=== PATIENT | female | born 2000 | race Caucasian/White ===

== ENCOUNTER 2024-10-05 20:57 | Emergency (ER) | payer MEDICAID ==
[~2024-10-05] VITALS: Ht 167.6 cm; Wt 86.6 kg
--- NOTE | 2024-10-05 21:31 | Physician Documentation ---
History of Present Illness ~ Chief Complaint: Fever Stated Complaint: FEVER Time Seen by MD: 01:55 HPI 24-year-old female presents to the ED with a complaint of a fever for the last three days. States that her fever has been over 103 F. denies any other symptoms other than minor headache. Denies any neck pain. States she has recurrent UTIs and currently explains that she has a burning urination. Additional note by Chidi Mills DO: I took over the care of this patient from previous physician. I reviewed any previous notes available, obtain my own history, review of systems and physical examination was performed by myself. This is a pleasant 24-year-old female with known history of recurrent UTIs, comes in for evaluation of two days of fever with a T-max of 104.3. She reports urinary frequency and dysuria. Reports minor headache when fever present. She feels that this represents a urinary tract infection. The particular palliating or aggravating factors. The nursing note states that the patient was confused in triage, however she states that she did not feel confused and she just asked the boyfriend to verify her cell phone number as she does not often refers to it. No altered mental status. No current headache. No neck pain. Denies any other symptoms. Denies any concern for tobacco, alcohol or illicit substances use Day of Onset: Oct 05, 2024 Medication Reconciliation Allergies: Coded Allergies: ciprofloxacin (Verified Allergy, Unknown, RASH, 10/05/24) Review of Systems ROS 10 point review of systems was performed and unless noted above in HPI is negative for acute process/complaint. Physical Exam Vital Signs: Temperature: 103.1, Source: Oral, Heart Rate: 138, Respiratory Rate: 16, BP: 132/82, Pulse Oximetry: 97, Weight: 86.600 Oxygen Flow Rate: 0 Physical Exam Physical examination: GENERAL: Awake, alert, oriented, GCS 15, no apparent distress, non-toxic appearing, answers questions, follows commands appropriately. HEENT: Atraumatic, normocephalic, pupils equal, extraocular muscles intact Active gross movements, sclerae anicteric, mucus membranes moist, no stridor. NECK: Midline, no JVD CARDIOVASCULAR: Good skin perfusion without evidence of pallor, mottling. PULMONARY: Nonlabored, symmetric chest rise, no audible wheezing, no accessory muscle use, no respiratory distress, speaking in full sentences. GASTROINTESTINAL: Not distended. NEUROLOGIC: Lucid with normal mental status. Normal facial symmetry. Moves all extremities symmetrically and with purpose. No truncal ataxia. Speech is fluid without evidence of dysarthria or aphasia, no focal deficits appreciated. EXTREMITIES: Acute deformities Skin: warm, dry PSYCHIATRIC: Normal affect, normal insight, normal concentration. Focused exam: [] Progress Results/Orders Results/Orders Orders - CHIDI MILLS DO Monitor (10/05/24 21:12) Oxygen (10/05/24 21:12) Saline Lock (10/05/24 21:12) Straight Cath For Urine Sample (10/05/24 21:12) Cult Urine + [place] [address] (10/06/24 02:21) Completed Orders - CHIDI MILLS DO Cbc/Diff (10/05/24 21:12) Procalcitonin (10/05/24 21:12) BMP (10/05/24 21:12) Ua W/Microscopic, Cult If Ind (10/06/24 01:00) Medications Received in ER Medications (Trade) Dose Ordered Sig/Nicolas Route PRN Reason Start Time Stop Time Status Last Admin Dose Admin (Motrin tablet) 800 mg ONCE ONCE PO 10/05/24 22:05 10/05/24 22:06 DC 10/05/24 22:47 800 MG Vital Signs 10/05/24 10/06/24 10/06/24 21:07 02:01 02:03 Temp 103.1 97.7 Pulse 138 80 Resp 16 16 B/P (MAP) 132/82 124/66 (85) Pulse Ox 97 99 O2 Flow Rate 0 Laboratory Tests Test 10/05/24 21:39 10/06/24 01:00 White Blood Count 12.6 H Red Blood Count 4.31 Hemoglobin 12.8 Hematocrit 38.4 Mean Corpuscular Volume 89.1 Mean Corpuscular Hemoglobin 29.7 Mean Corpuscular Hemoglobin Concent 33.3 Red Cell Distribution Width 12.5 Platelet Count 219 Mean Platelet Volume 7.1 L Neutrophils (%) (Auto) 85.2 H Lymphocytes (%) (Auto) 4.8 L Monocytes (%) (Auto) 9.2 Eosinophils (%) (Auto) 0.7 Basophils (%) (Auto) 0.1 Neutrophils # (Auto) 10.7 H Lymphocytes # (Auto) 0.6 L Monocytes # (Auto) 1.1 H Eosinophils # (Auto) 0.1 Basophils # (Auto) 0.0 CBC Comment Sodium Level 136 Potassium Level 3.3 L Chloride Level 104 Carbon Dioxide Level 25.2 Anion Gap 7 L Blood Urea Nitrogen 9 Creatinine 0.94 H Estimated GFR/1.73 m2 73 BUN/Creatinine Ratio 9.6 L Glucose Level 143 H Calcium Level 8.6 Albumin 3.3 L Procalcitonin 0.29 Chemistry Comments Urine Specimen Description Cln catch midstream Urine Color Straw Urine Clarity Cloudy Urine pH 6.0 Urine Specific [place] 1.020 Urine Protein 100 H Urine Glucose (UA) Negative Urine Ketones Trace H Urine Occult Blood Small Urine Nitrite Positive H Urine Bilirubin Negative Urine Urobilinogen 0.2 Urine Leukocyte Esterase Small H Urine RBC 3-10 Urine WBC 50-100 H Urine WBC Clumps Few Urine Squamous Epithelial Cells Few Urine Bacteria 2+ Urine Mucus Moderate Urine Culture Indicated Indicated Volume Urine Centrifuged 10 ml Urine Comment Medical Decision Making Findings Facility Status: ED H[facility], [facility] process The plan was discussed with the patient, who demonstrates clear understanding of the plan and is in agreement with the plan unless otherwise noted in the chart. All questions have been answered, all concerns were addressed unless otherwise documented. I was available throughout their ED stay for frequent reassessment and questions. Differential Diagnoses (considered and possible or likely): [Urinary tract infection, COVID, influenza, RSV, upper respiratory infection in the top of the viruses, bacterial pneumonia less likely, sepsis has been considerably as well with a without organ failure] ??Differential Diagnoses (considered and unlikely, not requiring evaluation currently): [See above] MDM Data Please see [facility] for the following: Independent Historians and external Records Review. Historian: [Patient] Independent Historians: ?[Boyfriend] Medication Management: [Reviewed medication list] Social History and determinants: [Reviewed] Please see the body of the note for the following: Any independent interpretations of ECG, imaging studies. All vitals signs/haemodynamics, ordered tests were independently reviewed and interpreted by myself. Nursing triage complaint and vitals reviewed, additional nursing notes were reviewed as available and I agree unless otherwise noted or documented in contradiction in the chart Vital Signs: Independently reviewed Labs: Independently interpreted Imaging: Independently interpreted Old Medical Records: Independently reviewed, see HPI for relevant summary and information Pulse Oximetry: [100%] interpreted as [normal on room air] by me Additionally notably showing: [Hemodynamics reviewed. The patient isn't febrile, tachycardic and presentation, that improved with the fever resolution. No evidence of hypotension respiratory distress. Laboratory studies show fulminant UTI. Chemistry shows normal renal function, normal glucose. Procalcitonin is normal decreased suspicion for progression to sepsis. Mi in a white count noted. 85% neutrophilic predominance.] Tests considered but not ordered include: [Imaging has been considered but does not appear to be necessary] Social Determinants of Health Impact: Patient was evaluated in [facility] [place] healthcare due to below par ratio of patient to medical providers. [] Comorbid Conditions Impacting Present Evaluation and Care/Treatment: [Frequent UTIs] Management Discussions with other Healthcare Providers: [None] Treatment and Disposition Medication Management (Given or considered): [Initial dose of antibiotic]. See EMR for details Consideration for Hospitalization/Escalation/Deescalation of Care: Admission for observation has been considered, [however the patient is able to tolerate p.o., their symptoms are controlled, they are able to rely on oral medications, and their chief complaint/diagnosis can be managed on outpatient basis.] ?ED Course:?[Clinically improved. Fever resolved. Tachycardia resolved and it was congruent with fever] ?Shared decision making:?[Patient is hemodynamically stable for discharge home with follow with their primary care provider. [ ] Specific and cautious return precautions provided and discussed with full understanding. Any incidental findings were also discussed and follow up recommendations given. [] All questions answered. Patient/family were able to verbalize back return precautions. Patient/family agree to plan. Copies of imaging and laboratory studies were provided.] Code status:?FULL Please see the full Electronic Medical Record for full details of nursing documentation, medications list, other records of complete past medical history and conditions, vital signs, laboratory studies, and any radiologic study int erpretations by radiologists. Portions of this note were completed using Reds[employer] dictation software and as a result there may exist minor errors in spelling. I have reviewed elements of past family and social history and agree as included in note. Departure Disposition: HOME / SELF CARE / HOMELESS Impression: Primary Impression: Urinary tract infection Additional Impression: Fever Condition: Improved Discharge Instructions: Urinary Tract Infection, Adult Referrals: NO PRIMARY CARE PROVIDER (PCP) Prescriptions Cefpodoxime Proxetil (Vantin) 200 Mg Tablet 1 TAB PO Q12H for 10 Days, #20 TAB Prov: CHIDI MILLS DO 10/06/24 Education Educated: Patient, Family Educated regarding: diagnosis, treatment, prognosis, need for follow up Signature Scribe Signature: No scribe Attestation: This note accurately reflects clinical decisions, work performed by myself, DO LYNETTE Mart JUSTIN H NP Oct 05, 2024 21:31 CHIDI MILLS DO Oct 06, 2024 02:37
[2024-10-05 21:53] LABS: MEAN PLATELET VOLUME 7.1 FL (7.4-10.4); RED CELL DISTRIBUTION WIDTH 12.5 % (11.5-14.5)
[2024-10-05 21:59] LABS: CREATININE 0.94 MG/DL (0.40-0.90); TOTAL CARBON DIOXIDE 25.2 MMOL/L (24-32); eCRCL 86 ML/MIN; eGFR 73 ML/MIN
[2024-10-05] MEDS: ibuprofen tablet 400 MG TABLET PO ONE (22:47)
[2024-10-06 02:01] VITALS: TEMP 97.7
[2024-10-06 02:15] LABS: LEUKOCYTE ESTERASE ,URINE SMALL (Neg); NITRITES, URINE POSITIVE (Neg); OCCULT BLOOD,URINE SMALL (Neg); UA COLLECTION TYPE CLN CATCH MIDSTREAM
[2024-10-06 02:20] LABS: MUCUS STRANDS MODERATE /LPF (Neg); SQUAMOUS EPITHELIAL CELL,UR FEW /LPF (FEW); WBC CLUMPS,URINE FEW /HPF (NEGATIVE)
[2024-10-06] MEDS ORDERED: cefpodoxime proxetil 100mg tablet PO SCH (02:35)
[2024-10-06] MEDS ORDERED: CEFP200T13 PO (02:38)
[2024-10-06] MEDS ORDERED: CefTRIAXone 250MG IM Kit w/LIDOcaine IM ONE (03:25)
[2024-10-06] MEDS: CefTRIAXone 1000mg IM Kit (w/lidocaine diluent) IM ONE (03:46)
[2024-10-06 03:52] VITALS: BP 103/62; PULSE 77; RESP 15; O2SAT 99
== END 2024-10-06 03:55 | disposition home or self-care (01) ==
LOC: ER 20:58
DX: N39.0 Urinary tract infection, site not specified (principal); R50.9 Fever, unspecified; Z88.1 Allergy status to other antibiotic agents
CPT/HCPCS: 36415; 80048; 81001; 84145; 85025; 87077; 87088; 87186; 96372; 99283; J0696